=== PATIENT | female | born 1965 | race Caucasian/White ===

== ENCOUNTER 2016-12-11 03:29 | Emergency (ER) | payer BC ==
[~2016-12-11] VITALS: Ht 162.6 cm; Wt 52.1 kg
[2016-12-11 03:33] VITALS: TEMP 36.9; Ht 162.6 cm; Wt 52.1 kg
[2016-12-11] MEDS ORDERED: METOCLOPRAMIDE HCL INJ 5 MG/ML 2 ML VIAL IV STA (03:40)
[2016-12-11] MEDS ORDERED: SODIUM CHLORIDE 0.9% 1000ML 1,000 ML IV STA ×2 (03:40)
[2016-12-11] MEDS ORDERED: DiphenhydrAMINE HCL 50 MG/ML VIAL IV STA (03:40)
[2016-12-11] MEDS ORDERED: DEXAMETHASONE SOD INJ 10 MG/ML VIAL IV ONE (03:45)
[2016-12-11] MEDS ORDERED: CEFTRIAXONE SOD INJ 2,000 MG in DEXTROSE 5% 50ML 50 ML IV STA (03:51)
[2016-12-11 04:13] LABS: BASO % 0.2 %; BASO ABS # 0.01 K/uL (0-0.2); COMPLETE YES; HEMATOCRIT 40.6 % (37-47); LYMPH ABS # 0.53 K/uL (1.2-3.4); MEAN CELL VOLUME 89.2 fL (80-100); MEAN CORPUSCULAR HEMOGLOBIN 29.9 pg (25-34); MEAN CORPUSCULAR HGB CONC 33.5 g/dl (32-36); MEAN PLATELET VOLUME 9.5 fL (7.4-10.4); MONO % 5.4 %; NEUT % 81.4 %; PLATELET COUNT 135 K/uL (130-400); RED BLOOD COUNT 4.55 M/uL (4.2-5.4); WHITE BLOOD COUNT 4.07 K/uL (4.8-10.8)
[2016-12-11] MEDS ORDERED: TYLOTC500 PO (04:18)
[2016-12-11] MEDS ORDERED: IBUP-1277 PO (04:18)
[2016-12-11 04:22] LABS: PARTIAL THROMBOPLASTIN RATIO 1.2; PROTHROMBIN TIME (PATIENT) 11.1 SECONDS (9.0-12.0)
[2016-12-11 04:32] LABS: BUN/CREATININE RATIO 14.7 (10-20); CALCIUM 8.5 mg/dl (8.5-10.1); CREATININE 0.87 mg/dl (0.60-1.20); POTASSIUM 3.5 mmol/L (3.5-5.1)
[2016-12-11 04:35] LABS: ALB/GLOB RATIO 0.9 (0.9-2)
[2016-12-11 04:36] VITALS: O2SAT 98
[2016-12-11 05:00] LABS: LYME DISEASE AB IGG NEG (NEG); LYME DISEASE AB IGM NEG (NEG)
[2016-12-11 05:20] LABS: CSF TOTAL PROTEIN 31.3 mg/dl (15.0-45.0)
[2016-12-11 05:33] LABS: CSF APPEARANCE CLEAR; CSF COLOR COLORLESS
[2016-12-11 05:34] LABS: CSF CHEMISTRY TUBE # 2; CSF XANTHOCHROMIC NO XANTHOCHROMIA
--- NOTE | 2016-12-11 06:02 | EMERGENCY ROOM VISIT NOTE ---
History First contact with patient: 03:36 Chief Complaint: HEADACHE Stated Complaint: HEADACHE History of Present Illness The patient is a 51 year old female who presents to the Emergency Room with complaints of fever with headache and neck discomfort for the past 2 days that is steadily getting worse. Patient saw the [facility] urgent care yesterday and had lab work but no results. She's been taking Tylenol and Motrin around- the-clock. Tmax 102. Last Tylenol at 1 AM. She describes the headache as throbbing, ranging in severity 8 out of 10 throughout the right frontal region. She states her neck feels somewhat stiff. She works at the [employer] No recent travel. Patient denies chest pain, dyspnea, cough, congestion, sore throat, dysphagia, abdominal pain, vomiting, diarrhea, sinus pain or congestion. She is tolerate by mouth fluids but has a decreased appetite. Review of Systems See HPI for pertinent positives & negatives. A total of 10 systems reviewed and were otherwise negative. Past Medical/Surgical History Kidney Stones Social History Smoking Status: Never Smoker Smokeless Tobacco Use: No Drug Use: none Marital Status: Housing Status: lives with family Occupation Status: employed Current/Historical Medications Scheduled PRN Acetaminophen (Tylenol), 1,000 MG PO Q4 PRN for Pain or Fever Ibuprofen (Advil), 400 MG PO Q4 PRN for Pain or Fever Allergies Coded Allergies: Erythromycin (Verified Allergy, Intermediate, HIVES, 12/11/16) Penicillins (Verified Allergy, Intermediate, HIVES, 12/11/16) Physical Exam Vital Signs Date Time Temp Pulse Resp B/P (MAP) Pulse Ox O2 Delivery O2 Flow Rate FiO2 12/11/16 05:29 78 18 99 12/11/16 05:01 100/67 12/11/16 04:59 83 16 98 12/11/16 04:41 86 12/11/16 04:36 98 Room Air 12/11/16 04:34 86 17 106/67 98 Room Air 12/11/16 03:33 36.9 88 18 102/70 98 Room Air Physical Exam VITALS: Vitals are noted on the nurse's note and reviewed by myself. Vital signs stable. GENERAL: Pleasant female, in no acute distress, nondiaphoretic, well-developed well-nourished. SKIN: The skin was without rashes, erythema, edema, or bruising. There is no tenting of the skin. Capillary reflex less than 2 seconds. HEAD: Normocephalic atraumatic. EARS: External auditory canals clear, tympanic membranes pearly solano without erythema or effusion bilaterally. EYES: Pupils equal round and reactive to light and accommodation. Conjunctivae without injection, sclerae without icterus. Extraocular movements intact. NOSE: Patent, turbinates without inflammation or discharge. No sinus tenderness. MOUTH: Mucous membranes moist. Pharynx without erythema or exudate. Uvula midline. Airway patent. Tongue does not deviate. NECK: Supple without nuchal rigidity. Patient has minimal neck discomfort with chin to chest. No lymphadenopathy. No thyromegaly. Cervical spine is nontender. No JVD. HEART: Regular rate and rhythm without murmurs gallops or rubs. LUNGS: Clear to auscultation bilaterally without wheezes, rales or rhonchi. No dullness to percussion. No retractions or accessory muscle use. ABDOMEN: Positive bowel sounds x 4. Normal tympanic percussion. Soft, nontender, without masses or organomegaly. Bowden sign negative. No guarding or rebound tenderness. MUSCULOSKELETAL: No muscle atrophy, erythema, or edema noted. NEURO: Patient was alert and oriented to person place and time. Normal sensation to light and sharp touch. No focal neurological deficits. Cranial nerves II through XII grossly intact. No pronator drift. Cerebellar exam intact. Medical Decision & Procedures Laboratory Results 12/11/16 03:54 Red Blood Count 4.55, Mean Corpuscular Volume 89.2, Mean Corpuscular Hemoglobin 29.9, Mean Corpuscular Hemoglobin Concent 33.5, Mean Platelet Volume 9.5, Neutrophils (%) (Auto) 81.4, Lymphocytes (%) (Auto) 13.0, Monocytes (%) (Auto) 5.4, Eosinophils (%) (Auto) 0.0, Basophils (%) (Auto) 0.2, Neutrophils # (Auto) 3.31, Lymphocytes # (Auto) 0.53, Monocytes # (Auto) 0.22, Eosinophils # (Auto) 0.00, Basophils # (Auto) 0.01 12/11/16 03:54 Test 12/11/16 03:54 12/11/16 04:03 12/11/16 04:55 White Blood Count 4.07 K/uL (4.8-10.8) Red Blood Count 4.55 M/uL (4.2-5.4) Hemoglobin 13.6 g/dL (12.0-16.0) Hematocrit 40.6 % (37-47) Mean Corpuscular Volume 89.2 fL (80-100) Mean Corpuscular Hemoglobin 29.9 pg (25-34) Mean Corpuscular Hemoglobin Concent 33.5 g/dl (32-36) Platelet Count 135 K/uL (130-400) Mean Platelet Volume 9.5 fL (7.4-10.4) Neutrophils (%) (Auto) 81.4 % Lymphocytes (%) (Auto) 13.0 % Monocytes (%) (Auto) 5.4 % Eosinophils (%) (Auto) 0.0 % Basophils (%) (Auto) 0.2 % Neutrophils # (Auto) 3.31 K/uL (1.4-6.5) Lymphocytes # (Auto) 0.53 K/uL (1.2-3.4) Monocytes # (Auto) 0.22 K/uL (0.11-0.59) Eosinophils # (Auto) 0.00 K/uL (0-0.5) Basophils # (Auto) 0.01 K/uL (0-0.2) RDW Standard Deviation 42.3 fL (36.4-46.3) RDW Coefficient of Variation 12.9 % (11.5-14.5) Immature Granulocyte % (Auto) 0.0 % Immature Granulocyte # (Auto) 0.00 K/uL (0.00-0.02) Prothrombin Time 11.1 SECONDS (9.0-12.0) Prothromb Time International Ratio 1.0 (0.9-1.1) Activated Partial Thromboplast Time 30.3 SECONDS (21.0-31.0) Partial Thromboplastin Ratio 1.2 Anion Gap 6.0 mmol/L (3-11) Est Creatinine Clear Calc Drug Dose 61.5 ml/min Estimated GFR () 88.2 Estimated GFR (Non- 76.1 BUN/Creatinine Ratio 14.7 (10-20) Calcium Level 8.5 mg/dl (8.5-10.1) Total Bilirubin 0.4 mg/dl (0.2-1) Aspartate Amino Transf (AST/SGOT) 75 U/L (15-37) Alanine Aminotransferase (ALT/SGPT) 67 U/L (12-78) Alkaline Phosphatase 94 U/L (45-117) Total Protein 6.8 gm/dl (6.4-8.2) Albumin 3.3 gm/dl (3.4-5.0) Globulin 3.5 gm/dl (2.5-4.0) Albumin/Globulin Ratio 0.9 (0.9-2) Lyme Disease IgG Antibody NEG (NEG) Lyme Disease IgM Antibody NEG (NEG) Bedside Lactic Acid Venous 1.08 mmol/L (0.90-1.70) CSF Color COLORLESS CSF Appearance CLEAR CSF WBC 1 /uL (0-5) CSF RBC 0 /uL (0) CSF Xanthrochromic NO XANTHOCHROMIA CSF Cell Count Tube # 4 CSF Chemistry Tube # 2 CSF Glucose 65 mg/dl (40-70) CSF Total Protein 31.3 mg/dl (15.0-45.0) Medications Administered Medications (Trade) Dose Ordered Sig/Lilibeth Route Start Time Stop Time Status Last Admin Dose Admin Sodium Chloride 1,000 ml @ 999 mls/hr Q1H1M STAT IV 12/11/16 03:40 12/11/16 04:40 DC 12/11/16 04:13 999 MLS/HR Dexamethasone Sodium Phosphate (Decadron Inj) 10 mg NOW ONCE IV 12/11/16 03:45 12/11/16 03:46 DC 12/11/16 04:12 10 MG Metoclopramide HCl (Reglan Inj) 10 mg NOW STAT IV 12/11/16 03:40 12/11/16 03:42 DC 12/11/16 04:13 10 MG Diphenhydramine HCl (Benadryl Inj) 12.5 mg NOW STAT IV 12/11/16 03:40 12/11/16 03:42 DC 12/11/16 04:13 12.5 MG Ceftriaxone Sodium 2000 mg/ Dextrose 70 ml @ 100 mls/hr ONE STAT IV 12/11/16 03:51 12/11/16 04:32 DC 12/11/16 05:01 100 MLS/HR Procedure Lumbar Puncture Indication: r/o meningitis. Verbal consent was obtained after the risks and benefits were explained, including but not limited to headache, bleeding/clotting, scarring, infection, pain, and bone/joint/nerve damage. At this time, the risks of the procedure are less than the risks of NOT performing the procedure. A time out was taken and the correct patient and site identified. The patient was placed in the sitting position and the back was prepped with betadine and draped in the standard fashion. The L3 intervertebral space was identified, anesthetized locally with 1 % lidocaine without epinephrine, and the spinal needle was inserted through the skin with the bevel parallel to the dural fibers. The needle was carefully advanced into the lumbar cistern and 4 tubes of clear CSF was obtained. The stylet was replaced and the needle was removed. A bandaid was placed and the patient was placed in the supine position. The patient tolerated the procedure well and there were no complications. ED Course Prior records/ancillary studies reviewed. Additional history obtained from family Triage Nursing notes reviewed. The patient's history was concerning for fever with headache. Differential diagnosis: Etiologies such as migraine headache, meningitis, sinusitis, CO exposure, ICH, SAH, infection, tumor, headache, sinus thrombosis, arterial dissection, as well as others were entertained. Physical examination findings: As above. Non-focal. ER treatment provided: IV fluids, Decadron, Rocephin, Benadryl, Reglan On reassessment the patient felt better. Diagnostics interpreted by me: ECG: Normal sinus, normal intervals, no acute ST-T wave changes. Impression normal sinus rhythm interpreted by myself The labs revealed neg CSF, negative lactic acid. Blood cultures pending Imaging studies: neg head CT per rad This appears to be consistent with fever with headache. Negative LP. Patient was counseled on lumbar puncture headaches and verbalized understanding this. Patient was advised to stay well-hydrated and take cold medicines as needed. She is advised to follow-up family care in a few days or here in the ER sooner for high fevers, headache, neck status, worsening signs or symptoms or as needed. Patient was neurovascularly and neurologically intact. She is well- appearing.. By the evaluation outlined above emergent etiologies such as meningitis, sinusitis, CO exposure, ICH, SAH, infection, temporal arteritis, tumor, sinus thrombosis, arterial dissection, as well as others were deemed relatively unlikely. The pt informed about the findings as listed above. All questions were answered and pleased with the treatment. Return instructions were outlined and the patient was discharged in stable condition. Referral: The patient was referred back to their primary care physician for follow-up in 2 to 3 days for a recheck of the current condition. Case reviewed with my attending. Medical Decision As above Impression Primary Impression: Headache Additional Impression: Fever Departure Information Dispostion Home / Self-Care Condition GOOD Referrals Ave Castro M.D. (PCP) Patient Instructions My [facility] Additional Instructions If you develop a headache when you sit up and goes away when you lay down and does not resolve with Tylenol or Motrin within the next 48 hours you may come here for possible blood patch. Acetaminophen(Tylenol) may be used for fever or pain. Use 1000mg every six hours as needed. Avoid using more than 4000mg in a 24 hour period. (AND/OR) Ibuprofen(Motrin, Advil) may be used for fever or pain. Use 600mg every six hours as needed. Take with food. Avoid using more than 2400mg in a 24 hour period. Do not use 2400mg per day for more than three consecutive days without physician direction. Prolonged inappropriate use can lead to stomach upset or ulcers. Afrin nasal spray: 2-3 sprays to each nostril twice daily as needed for congestion. Do not use for more than 3-4 days because it can lead to worsening rebound congestion. Pseudoephedrine(Sudaphed): 30-60mg every 6 hours as needed for nasal congestion. Do not take this with other stimulant products or supplements. Rest and drink plenty of fluids. Controlling your fever with Tylenol and Ibuprofen as above will make you feel better. Wash your hands after nose blowing, sneezing, or coughing. Most germs are spread through contact, therefore improper hygiene may result in your close contacts and loved ones becoming ill just like you. Continue current medications. Return to the ER for severe headache, neck stiffness, chest pain, difficulty breathing, fevers, vomiting, worsening of your condition, or as needed. Follow up with your primary physician this week for a recheck of your current condition. Problem Qualifiers Primary Impression: Headache Headache type: unspecified Headache chronicity pattern: acute headache Intractability: not intractable Qualified Codes: R51 - Headache
[2016-12-11 06:23] VITALS: BP 102/62; PULSE 91; O2SAT 98
--- NOTE | 2016-12-11 06:31 | EMERGENCY ROOM VISIT NOTE ---
ED Visit Note First contact with patient: 03:36 I have personally evaluated and examined this patient. I agree with assessment and plan of Quyen Ferrer PA-C.
--- NOTE | 2016-12-11 06:32 | DIAGNOSTIC IMAGING REPORT ---
CHEST ONE VIEW PORTABLE HISTORY: 51 years Female Sepsis COMPARISON: None available TECHNIQUE: Portable upright AP view of the chest FINDINGS: Cardiomediastinal and hilar silhouettes are within normal limits. No pneumothorax, pleural effusion or focal airspace consolidation. There is gentle convex left curvature of the midthoracic spine. The bones are grossly intact. IMPRESSION: No acute cardiopulmonary process. The above report was generated using voice recognition software. It may contain grammatical, syntax or spelling errors. Electronically signed by: Nato Ambrocio M.D. 12/11/2016 6:31 AM Dictated Date/Time: 12/11/2016 6:30 AM
--- NOTE | 2016-12-11 06:41 | DIAGNOSTIC IMAGING REPORT ---
HEAD WITHOUT CONTRAST (CT) CT DOSE: 767.83 mGy.cm HISTORY: fever/severe PADILLA TECHNIQUE: Multiaxial CT images of the head were performed without the use of intravenous contrast. Comparison: None. Findings: The paranasal sinuses and mastoid air cells are clear. The calvarium and skull base are intact. The ventricles and sulci are within normal limits. There is no mass, hematoma, midline shift, or acute infarct. Impression: No acute intracranial abnormality. The above report was generated using voice recognition software. It may contain grammatical, syntax or spelling errors. Electronically signed by: Nikolai Coker M.D. 12/11/2016 6:40 AM Dictated Date/Time: 12/11/2016 6:39 AM
[2016-12-14 22:31] LABS: LYME DNA PCR CSF OR SYNOVIAL Not detected (Not Detected); LYME DNA SOURCE CSF
== END 2016-12-11 06:23 | disposition home or self-care (01) ==
LOC: C.EDB 03:30 → C.EDA 06:23
DX: R51 Headache (principal); R50.9 Fever, unspecified; Z87.442 Personal history of urinary calculi

== ENCOUNTER 2016-12-13 11:26 | Emergency (ER) | payer BC ==
[~2016-12-13] VITALS: Ht 162.6 cm; Wt 53.7 kg
[~2016-12-13 11:26] MED LIST: IBUP-1277 PO; TYLOTC500 PO
[2016-12-13 11:35] VITALS: PULSE 66; TEMP 36.6; O2SAT 99; Ht 162.6 cm; Wt 53.7 kg
[2016-12-13] MEDS ORDERED: ONDANSETRON INJ 2 MG/ML 2 ML VIAL IV STA (12:14)
[2016-12-13] MEDS ORDERED: SODIUM CHLORIDE 0.9% 1000ML 1,000 ML IV STA (12:14)
[2016-12-13] MEDS ORDERED: MoRPHine SULFATE 4 MG/ML 1 ML CARP\\VIAL IV PRN (12:15)
[2016-12-13 12:28] LABS: BASO % 0.5 %; BASO ABS # 0.02 K/uL (0-0.2); COMPLETE YES; EOS % 1.2 %; HEMATOCRIT 36.9 % (37-47); LYMPH % 27.4 %; LYMPH ABS # 1.18 K/uL (1.2-3.4); MEAN CELL VOLUME 89.3 fL (80-100); MEAN CORPUSCULAR HGB CONC 33.6 g/dl (32-36); MEAN PLATELET VOLUME 9.2 fL (7.4-10.4); MONO % 7.9 %; PLATELET COUNT 193 K/uL (130-400); RED BLOOD COUNT 4.13 M/uL (4.2-5.4)
--- NOTE | 2016-12-13 13:00 | EMERGENCY ROOM VISIT NOTE ---
History Report prepared by Yeison: Alex Acosta Under the Supervision of: Dr. Benjamín Reyes D.O. First contact with patient: 12:09 Chief Complaint: HEADACHE Stated Complaint: HEADACHE History of Present Illness The patient is a 51 year old female who presents to the Emergency Room with complaints of a severe, right sided headache starting 2 days ago. The patient was evaluated in the Emergency Room for a severe headache, and fever of 102 degrees Fahrenheit. She received a lumbar puncture and a negative CT scan. Since the lumbar puncture, the patient's headache has now moved to the right side. The pain radiates from the back of the head to the front. She describes it as a sharp pain. She has worsening pain with standing up and pain relief with lying down. As per , the patient has been taking 1000 mg Tylenol every 4-6 hours with some relief. She also complains of diarrhea starting 2 days ago. She reports nausea but denies vomiting. She did not have any fevers in the past 2 days. The patient was referred to the Emergency Room by her PCP's office. Source of History: patient Onset: 2 days ago Position: head Symptom Intensity: severe Quality: sharp Modifying Factors (Worsening): other (standing up) Modifying Factors (Relieving): tylenol (with some relief), other (lying down ) Associated Symptoms: + nausea, + diarrhea, No vomiting Review of Systems See HPI for pertinent positives & negatives. A total of 10 systems reviewed and were otherwise negative. Past Medical & Surgical Medical Problems: (1) Kidney stones Family History Cancer Diabetes mellitus Heart disease Lung disease Social History Smoking Status: Never Smoker Alcohol Use: occasionally Drug Use: none Marital Status: Housing Status: lives with family Occupation Status: employed Current/Historical Medications Scheduled PRN Acetaminophen (Tylenol), 1,000 MG PO Q4 PRN for Pain or Fever Ibuprofen (Advil), 400 MG PO Q4 PRN for Pain or Fever Allergies Coded Allergies: Erythromycin (Verified Allergy, Intermediate, HIVES, 12/11/16) Penicillins (Verified Allergy, Intermediate, HIVES, 12/11/16) Physical Exam Vital Signs Date Time Temp Pulse Resp B/P (MAP) Pulse Ox O2 Delivery O2 Flow Rate FiO2 12/13/16 14:18 106/68 12/13/16 13:31 103/66 12/13/16 11:35 36.6 66 20 125/79 99 Room Air Physical Exam GENERAL: Patient is awake, alert, very anxious and uncomfortable appearing. EYES: The conjunctivae are clear. The pupils are round and reactive. EARS, NOSE, MOUTH AND THROAT: The nose is without any evidence of any deformity. Mucous membranes are moist tongue is midline NECK: The neck is nontender and supple. RESPIRATORY: Normal respiratory effort is noted there is no evidence of wheezing rhonchi or rales CARDIOVASCULAR: Regular rate and rhythm noted there no murmurs rubs or gallops normal S1 normal S2 GASTROINTESTINAL: The abdomen is soft. Bowel sounds are present in all quadrants. Abdomen is nontender BACK: No midline tenderness or or step-off noted range of motion in flexion extension as well as rotation no signs of muscle spasm noted. Lumbar puncture site was noted in the lower lumbar spine, no swelling or erythema noted. MUSCULOSKELETAL/EXTREMITIES: There is no evidence of gross deformity full range of motion is noted in the hips and shoulders SKIN: There is no obvious evidence of any rash. There are no petechiae, pallor or cyanosis noted. NEUROLOGIC: Patient is awake alert and oriented x3 strength is symmetric patellar reflexes are 2+ bilaterally Medical Decision & Procedures Laboratory Results 12/13/16 11:55 Red Blood Count 4.13, Mean Corpuscular Volume 89.3, Mean Corpuscular Hemoglobin 30.0, Mean Corpuscular Hemoglobin Concent 33.6, Mean Platelet Volume 9.2, Neutrophils (%) (Auto) 63.0, Lymphocytes (%) (Auto) 27.4, Monocytes (%) (Auto) 7.9, Eosinophils (%) (Auto) 1.2, Basophils (%) (Auto) 0.5, Neutrophils # (Auto) 2.71, Lymphocytes # (Auto) 1.18, Monocytes # (Auto) 0.34, Eosinophils # (Auto) 0.05, Basophils # (Auto) 0.02 12/13/16 11:55 Test 12/13/16 11:55 White Blood Count 4.30 K/uL (4.8-10.8) Red Blood Count 4.13 M/uL (4.2-5.4) Hemoglobin 12.4 g/dL (12.0-16.0) Hematocrit 36.9 % (37-47) Mean Corpuscular Volume 89.3 fL (80-100) Mean Corpuscular Hemoglobin 30.0 pg (25-34) Mean Corpuscular Hemoglobin Concent 33.6 g/dl (32-36) Platelet Count 193 K/uL (130-400) Mean Platelet Volume 9.2 fL (7.4-10.4) Neutrophils (%) (Auto) 63.0 % Lymphocytes (%) (Auto) 27.4 % Monocytes (%) (Auto) 7.9 % Eosinophils (%) (Auto) 1.2 % Basophils (%) (Auto) 0.5 % Neutrophils # (Auto) 2.71 K/uL (1.4-6.5) Lymphocytes # (Auto) 1.18 K/uL (1.2-3.4) Monocytes # (Auto) 0.34 K/uL (0.11-0.59) Eosinophils # (Auto) 0.05 K/uL (0-0.5) Basophils # (Auto) 0.02 K/uL (0-0.2) RDW Standard Deviation 42.3 fL (36.4-46.3) RDW Coefficient of Variation 12.8 % (11.5-14.5) Immature Granulocyte % (Auto) 0.0 % Immature Granulocyte # (Auto) 0.00 K/uL (0.00-0.02) Anion Gap 5.0 mmol/L (3-11) Est Creatinine Clear Calc Drug Dose 75.6 ml/min Estimated GFR () 109.0 Estimated GFR (Non- 94.0 BUN/Creatinine Ratio 12.4 (10-20) Calcium Level 8.4 mg/dl (8.5-10.1) Total Bilirubin 0.3 mg/dl (0.2-1) Direct Bilirubin 0.1 mg/dl (0-0.2) Aspartate Amino Transf (AST/SGOT) 80 U/L (15-37) Alanine Aminotransferase (ALT/SGPT) 102 U/L (12-78) Alkaline Phosphatase 87 U/L (45-117) Total Protein 6.5 gm/dl (6.4-8.2) Albumin 3.0 gm/dl (3.4-5.0) Acetaminophen Level 10 ug/ml (10-30) Laboratory results per my review. Medications Administered Medications (Trade) Dose Ordered Sig/Lilibeth Route Start Time Stop Time Status Last Admin Dose Admin Sodium Chloride 1,000 ml @ 999 mls/hr Q1H1M STAT IV 12/13/16 12:14 12/13/16 13:14 DC 12/13/16 12:31 999 MLS/HR Ondansetron HCl (Zofran Inj) 4 mg NOW STAT IV 12/13/16 12:14 12/13/16 12:16 DC 12/13/16 12:32 4 MG Morphine Sulfate (MoRPHine SULFATE INJ) 4 mg Q15M PRN IV 12/13/16 12:15 12/13/16 14:59 DC 12/13/16 12:32 4 MG ED Course 1209: The patient was evaluated in room C09. A complete history and physical examination were performed. 1214: Zofran Inj 4 mg IV, Sodium Chloride 1000 ml @ 999 mls/hr IV 1215: Morphine Sulfate 4 mg IV 1353: Upon reevaluation, the patient is feeling better after the blood patch. I discussed the results and treatment plan with her. She verbalized agreement of the treatment plan. She was discharged home. Medical Decision Prior records/ancillary studies reviewed. Additional history obtained from . Triage Nursing notes reviewed. The patient's history was concerning for headache. Differential diagnosis: Etiologies such as migraine headache, meningitis, sinusitis, CO exposure, ICH, SAH, infection, tumor, headache, sinus thrombosis, arterial dissection, as well as others were entertained. The patient is a 51-year-old female who presented to the emergency department for an evaluation of headache. The patient recently had a spinal tap for rule out meningitis recent. Her history and physical exam appeared to be consistent with an acute post-lumbar puncture headache. The patient was treated with IV fluids IV pain medicine as well as IV antiemetics. I discussed her case with anesthesia and they've agreed to present to the emergency Department to treat the patient with a blood patch. The patient tolerated the blood patch quite well and was feeling much better on subsequent reevaluation. She was encouraged to rest and avoid any strenuous activity. She was also encouraged to follow-up with her family doctor for reevaluation and increase her caffeine intake. She was also encouraged to return to the emergency apartment immediately if symptoms change worsen or the need arises. Medication Reconcilliation Current Medication List: was personally reviewed by me Blood Pressure Screening Patient's blood pressure: Normal blood pressure Impression Primary Impression: Spinal headache Scribe Attestation The scribe's documentation has been prepared under my direction and personally reviewed by me in its entirety. I confirm that the note above accurately reflects all work, treatment, procedures, and medical decision making performed by me. Departure Information Dispostion Home / Self-Care Referrals Ave Castro M.D. (PCP) Forms HOME CARE DOCUMENTATION FORM, IMPORTANT VISIT INFORMATION Patient Instructions ED Headache Post Spinal Tap W Patch, [facility] Additional Instructions Drink plenty clear liquids. Increase your caffeine intake for the next few days. Rest and avoid any strenuous activity. Follow-up with your family for reevaluation. Return to the emergency department immediately if symptoms change worsen or the need arises. I would also recommend limiting your Tylenol use for the next few days.
[2016-12-13 13:03] LABS: POTASSIUM 3.5 mmol/L (3.5-5.1)
[2016-12-13 13:09] LABS: BUN/CREATININE RATIO 12.4 (10-20); CALCIUM 8.4 mg/dl (8.5-10.1); CREATININE 0.73 mg/dl (0.60-1.20)
--- NOTE | 2016-12-13 13:12 | Progress Note ---
Progress Note Date of Service Dec 13, 2016. Progress Note The patient is a 51 year old female who had a lumber puncture to rule out meningitis two days ago. That evening she complained of a headache which began at the back of her neck and radiated to her forehead whenever she sat or stood. The headache is severe and resolves when she lies down. It is associated with photophobia. After informed consent was obtained and a time out performed she was seated on the side of the bed and her back was prepped with betadine, a sterile drape applied and her subcutaneous area was infiltrated with 2 ml of 1% lidocaine over the L4-5 area. Using a 17 guage tuohy needle the epidural space was accessed using the HILTON technique. Under sterile conditions the Sandra Shelton ivory 20 ml of autologous blood which was injected into the epidural space. She was instructed to lie flat for at least 45 minutes before discharge. She was discharged with instructions to follow-up with her PMD if her headache persists or returns.
[2016-12-13 14:18] VITALS: BP 106/68
== END 2016-12-13 14:18 | disposition home or self-care (01) ==
LOC: C.EDB 11:28 → C.EDC 14:18
DX: G97.1 Other reaction to spinal and lumbar puncture (principal); Z87.442 Personal history of urinary calculi; Z83.3 Family history of diabetes mellitus

== ENCOUNTER → 2017-02-08 | Outpatient (CLI) | payer BC ==
--- NOTE | 2017-02-08 08:08 | DIAGNOSTIC IMAGING REPORT ---
KUB CLINICAL HISTORY: N20.0 Calculus of [id number] nephrocalcinosis COMPARISON STUDY: 01/08/2014 FINDINGS: Multiple bilateral renal calcifications. These are unchanged compared to the prior study. Bowel pattern is nonobstructive. IMPRESSION: Stable bilateral nephrocalcinosis The above report was generated using voice recognition software. It may contain grammatical, syntax or spelling errors. Electronically signed by: Nikolai Coker M.D. 02/08/2017 8:07 AM Dictated Date/Time: 02/08/2017 8:05 AM
== END | disposition home or self-care (01) ==
LOC: C.RAD 07:20
PROVIDERS: ATTEND Nurse Practitioner Family
DX: E83.59 Other disorders of calcium metabolism (principal); N29 Other disorders of kidney and ureter in diseases classified elsewhere

== ENCOUNTER → 2017-02-22 | Outpatient (CLI) | payer BC ==
--- NOTE | 2017-02-22 14:54 | MAMMOGRAPHY REPORT ---
BILATERAL DIGITAL SCREENING MAMMOGRAM TOMOSYNTHESIS WITH CAD: 02/22/2017 CLINICAL HISTORY: Routine screening. Patient has no complaints. TECHNIQUE: Breast tomosynthesis in addition to standard 2D mammography was performed. Current study was also evaluated with a Computer Aided Detection (CAD) system. COMPARISON: Comparison is made to exams dated: 02/17/2016 mammogram, 02/15/2015 mammogram, 11/30/2013 ma mmogram, 11/28/2012 mammogram, 11/24/2012 mammogram, and 11/19/2011 mammogram - [facility] [place]. BREAST COMPOSITION: The tissue of both breasts is heterogeneously dense, which may obscure small mas ses. FINDINGS: No suspicious masses, calcifications, or areas of architectural distortion are noted in ei ther breast. There has been no significant interval change compared to prior exams. IMPRESSION: ACR BI-RADS CATEGORY 1: NEGATIVE There is no mammographic evidence of malignancy. A 1 year screening mammogram is recommended. The pa tient will receive written notification of the results. Approximately 10% of breast cancers are not detected with mammography. A negative mammographic report should not delay biopsy if a clinically suggestive mass is present. Jess Bernstein M.D. ah/:02/22/2017 08:04:03 [employer] Conditioning Sheet Metal Installer: Manisha HICKEY(R)(M), [facility] letter sent: Normal 1/2 BI-RADS Code: ACR BI-RADS Category 1: Negative
== END | disposition home or self-care (01) ==
LOC: C.MAMM 07:45
PROVIDERS: ATTEND Internal Medicine
DX: Z12.31 Encounter for screening mammogram for malignant neoplasm of breast (principal)

== ENCOUNTER → 2017-04-05 | Day surgery (SDC) | payer BC ==
[2017-04-02 12:14] VITALS: Ht 162.6 cm; Wt 52.7 kg
[~2017-04-05] VITALS: Ht 162.6 cm; Wt 52.7 kg
[~2017-04-05] MED LIST changes: +ATROPINE SULFATE 0.1 MG/ML 5ML SYR IV PRN; +CIPROFLOXACIN 400MG / D5W IV SCH; +DEXAMETHASONE SOD INJ 4 MG/ML VIAL ONE; +EpHEDrine SULFATE INJ 50 MG/ML AMP IV PRN; +FENTANYL CITRATE INJ 50 MCG/1 ML 2 ML VIAL IV PRN; +FENTANYL CITRATE INJ 50 MCG/1 ML 2 ML VIAL ONE; +FLM4 PO; -IBUP-1277 PO; +LACTATED RINGER'S 1000ML 1,000 ML IV SCH; +LIDOCAINE HCL 2% 2 ML VIAL (20MG/ML) ONE; +MIDAZOLAM HCL 1 MG/ML 2ML VIAL ONE; +ONDANSETRON INJ 2 MG/ML 2 ML VIAL IV PRN; +ONDANSETRON INJ 2 MG/ML 2 ML VIAL ONE; +OXYC-57 PO; +OXYCODONE/ACETAMINOPHEN 5-325 TAB PO PRN; +PROPOFOL IV EMULSION 10 MG/ML 20 ML VIAL IV ONE; -TYLOTC500 PO
--- NOTE | 2017-04-05 07:22 | DIAGNOSTIC IMAGING REPORT ---
KUB CLINICAL HISTORY: N20.0 Calculus of haqmwdB16.0 [id number] nephrocalcinosis COMPARISON STUDY: 04/02/2017 FINDINGS: Bilateral nephrocalcinosis unchanged compared to the prior day. Several calcification proximal to mid left ureter unchanged from the prior study. They are slightly distal to the prior study at the level of the L4-L5 disc space. Bowel pattern is nonobstructive. IMPRESSION: 1. Bilateral nephrocalcinosis unchanged. 2. Multiple calcifications mid left ureter slightly distal to the location on the prior study. The above report was generated using voice recognition software. It may contain grammatical, syntax or spelling errors. Electronically signed by: Nikolai Coker M.D. 04/05/2017 7:21 AM Dictated Date/Time: 04/05/2017 7:19 AM
--- NOTE | 2017-04-05 08:11 | History & Physical Bridge Note ---
H&P Re-Evaluation Bridge Note: I have examined the patient, reviewed the History & Physical and in the interval since the performance of the History & Physical I have noted the following changes of clinical significance: No changes noted
--- NOTE | 2017-04-05 09:44 | Discharge Instructions ---
Discharge Instructions Date of Service Apr 05, 2017. Admission Reason for Admission: Stones Discharge Discharge Diagnosis / Problem: L ureteral stones s/p ESWL Discharge Goals Goal(s): Decrease discomfort, Improve function, Improve disease control, Diagnostic testing Activity Recommendations Activity Limitations: as noted below Lifting Limitations: no more than 25 pounds, gradually increase as tolerated Exercise/Sports Limitations: rest today, gradually increase as tolerated May Resume Sexual Activity: when tolerated Shower/Bathe: no limitations Driving or Machine Use: resume 1 day after discharge . Instructions / Follow-Up Instructions / Follow-Up In office as scheduled with KUB Xray before visit Discharge Diet Recommended Diet: Regular Diet (good fluid intake) Procedures Procedures Performed: Left ureteral shockwave lithotripsy Pending Studies Studies pending at discharge: yes List of pending studies: KUB Xray at follow-up appointment Medical Emergencies . Who to Call and When: Medical Emergencies: If at any time you feel your situation is an emergency, please call 911 immediately. . Non-Emergent Contact Non-Emergency issues call your: Urologist Call Non-Emergent contact if: you have a fever, temperature is above 101, your pain is not controlled, your pain is worsening, your pain is unusual for you, your pain is concerning you, you have any medication questions . . "Provider Documentation" section prepared by Patrice Spencer. . VTE Core Measure Inpt VTE Proph given/why not?: SCD's
--- NOTE | 2017-04-05 10:10 | [facility] Post Operative Brief Note ---
Immediate Operative Summary Operative Date Apr 05, 2017. Pre-Operative Diagnosis Left ureteral stone Post-Operative Diagnosis Same as pre-op Procedure(s) Performed Left ureteral shockwave lithotripsy Surgeon Dr. Patrice Spencer Vocational Rehabilitation Consultant Surgeon(s) None Estimated Blood Loss 0 mL Findings Good stone fragmentation on fluoroscopy Specimens None Drains NA Anesthesia GALMA Complication(s) None Disposition Recovery Room / PACU
--- NOTE | 2017-04-05 10:19 | OPERATIVE REPORT ---
DATE OF OPERATION: 04/05/2017 PREOPERATIVE DIAGNOSIS: Left ureteral stone cluster. POSTOPERATIVE DIAGNOSIS: Same. PROCEDURE: Left mid ureteral shockwave lithotripsy. SURGEON: Dr. Patrice Spencer. DEMOLITION WORKER: None. ANESTHESIA: General anesthesia with laryngeal mask. COMPLICATIONS: None. FINDINGS: Good fragmentation of stone on fluoroscopy. DETAILS OF PROCEDURE: The patient was brought to the litho suite. He was correctly identified and the stone was visualized on her most recent x-rays. After the correct time out was performed the patient was positioned over the therapy head. An adequate level of anesthesia was administered. The extracorporeal shockwave lithotripsy treatment was then commenced. Please see the [facility] sheet for complete treatment summary. After completion of the procedure the patient was taken to the recovery room in stable condition. I attest to the content of the Intraoperative Record and any orders documented therein. Any exception s are noted below.
[2017-04-05 11:01] VITALS: TEMP 37.6
--- NOTE | 2017-04-05 11:33 | Anesthesia Progress Nt - [facility] ---
Anesthesia Post Op Note Date & Time Apr 05, 2017 at 11:33 Vital Signs Pain Intensity: 3 Vital Signs Past 12 Hours Date Time Temp Pulse Resp B/P (MAP) Pulse Ox O2 Delivery O2 Flow Rate FiO2 04/05/17 10:56 128/81 04/05/17 10:54 78 18 04/05/17 10:54 78 18 97 04/05/17 10:53 83 16 04/05/17 10:53 83 16 96 04/05/17 10:52 37.0 89 16 144/98 96 04/05/17 10:34 36.6 83 16 125/80 100 Room Air 04/05/17 10:20 78 20 04/05/17 10:20 77 20 100 04/05/17 10:16 125/79 04/05/17 10:15 79 13 04/05/17 10:15 79 13 100 04/05/17 10:10 84 19 04/05/17 10:10 36.6 87 12 117/79 100 Mask 10 04/05/17 10:10 84 19 112/79 100 04/05/17 09:10 80 18 133/79 (97) 100 Nasal Cannula 2 04/05/17 09:00 83 20 133/85 (101) 100 Nasal Cannula 2 04/05/17 08:50 80 16 132/81 (98) 100 Nasal Cannula 2 04/05/17 07:32 36.8 82 18 127/79 (95) 99 Room Air Notes Mental Status: alert / awake / arousable, participated in evaluation Pt Amnestic to Procedure: Yes Nausea / Vomiting: adequately controlled Pain: adequately controlled Airway Patency, RR, SpO2: stable & adequate BP & HR: stable & adequate Hydration State: stable & adequate Anesthetic Complications: no major complications apparent
[2017-04-05 11:35] VITALS: BP 118/78; PULSE 83; O2SAT 97
== END | disposition home or self-care (01) ==
LOC: X.SURG 07:14
PROVIDERS: ATTEND Urology
DX: N20.1 Calculus of ureter (principal)

== ENCOUNTER → 2017-04-16 | Outpatient (CLI) | payer BC ==
[~2017-04-16] MED LIST changes: -ATROPINE SULFATE 0.1 MG/ML 5ML SYR IV PRN; -CIPROFLOXACIN 400MG / D5W IV SCH; -DEXAMETHASONE SOD INJ 4 MG/ML VIAL ONE; -EpHEDrine SULFATE INJ 50 MG/ML AMP IV PRN; -FENTANYL CITRATE INJ 50 MCG/1 ML 2 ML VIAL IV PRN; -FENTANYL CITRATE INJ 50 MCG/1 ML 2 ML VIAL ONE; -LACTATED RINGER'S 1000ML 1,000 ML IV SCH; -LIDOCAINE HCL 2% 2 ML VIAL (20MG/ML) ONE; -MIDAZOLAM HCL 1 MG/ML 2ML VIAL ONE; -ONDANSETRON INJ 2 MG/ML 2 ML VIAL IV PRN; -ONDANSETRON INJ 2 MG/ML 2 ML VIAL ONE; -OXYCODONE/ACETAMINOPHEN 5-325 TAB PO PRN; -PROPOFOL IV EMULSION 10 MG/ML 20 ML VIAL IV ONE
--- NOTE | 2017-04-16 07:55 | DIAGNOSTIC IMAGING REPORT ---
KUB HISTORY: Nephrolithiasis. COMPARISON: KUB 04/05/2017. FINDINGS: The bowel gas pattern is unremarkable. There are no dilated loops of small bowel to suggest an obstruction. Stable bilateral nephrolithiasis. There are multiple clusters of stones within the lower poles measuring up to 4 mm. The left ureteral calculi seen on the prior study are not clearly identified and may have passed in the interval. However, the mid to distal left ureter is partially obscured by overlying bowel gas. No pneumoperitoneum or pneumatosis. IMPRESSION: Stable bilateral nephrolithiasis. The left ureteral calculi seen on the prior study are no longer identified and may have passed in the interval. Electronically signed by: Rick Salinas M.D. 04/16/2017 7:53 AM Dictated Date/Time: 04/16/2017 7:51 AM
== END | disposition home or self-care (01) ==
LOC: C.RAD 07:19
PROVIDERS: ATTEND Nurse Practitioner Adult Health
DX: N20.0 Calculus of kidney (principal)

== ENCOUNTER → 2017-04-17 | Outpatient (CLI) | payer BC | END | disposition home or self-care (01) | LOC: C.LABSPEC 17:35 | PROVIDERS: ATTEND Urology | DX: N20.0 Calculus of kidney (principal) ==

== ENCOUNTER → 2017-05-01 | Outpatient (CLI) | payer BC ==
[~2017-05-01] MED LIST changes: -FLM4 PO
== END | disposition home or self-care (01) ==
LOC: C.LAB1850 11:54
PROVIDERS: ATTEND Internal Medicine Nephrology
DX: N20.0 Calculus of kidney (principal); E55.9 Vitamin D deficiency, unspecified

== ENCOUNTER → 2017-05-07 | Outpatient (CLI) | payer BC ==
--- NOTE | 2017-05-07 07:31 | DIAGNOSTIC IMAGING REPORT ---
KUB CLINICAL HISTORY: 52 years-old Female presenting with N20.0 [id number]. TECHNIQUE: Single supine view of the abdomen was obtained. COMPARISON: CT from 04/01/2017 and KUB from 04/26/2017. FINDINGS: Nonobstructive bowel gas pattern. Moderate stool burden throughout the colon. No gross pneumoperitoneum. Bilateral nephrolithiasis again noted. No calcifications along the courses of the ureters or projecting over the urinary bladder allowing for the presence of stool and gas. Transitional lumbosacral anatomy of the right transverse process of L5. IMPRESSION: 1. Bilateral nephrolithiasis unchanged in distribution. No radiographic evidence of ureteral or bladder calculi. Electronically signed by: Fausto Lozano M.D. 05/07/2017 7:30 AM Dictated Date/Time: 05/07/2017 7:24 AM
== END | disposition home or self-care (01) ==
LOC: C.RAD 07:08
PROVIDERS: ATTEND Urology
DX: N20.0 Calculus of kidney (principal)